=== PATIENT | female | born 1960 | race Caucasian/White ===

== ENCOUNTER → 2021-02-04 19:12 | Outpatient (BNVA) | payer OTHER, SELFPAY | PROVIDERS: Visit Provider Nurse Practitioner | DX: R50.9 Fever, unspecified (principal); B34.9 Viral infection, unspecified | CPT/HCPCS: 87400; 87635 ==

== ENCOUNTER → 2021-02-05 11:56 | Outpatient (BNVA) | payer OTHER, SELFPAY | PROVIDERS: Visit Provider Nurse Practitioner | DX: R50.9 Fever, unspecified (principal); B34.9 Viral infection, unspecified | CPT/HCPCS: 87801 ==

== ENCOUNTER 2023-02-24 07:46 | Day surgery (SDC) | payer OTHER, SELFPAY ==
[2023-02-24 08:03] VITALS: BP 137/90; PULSE 72; RESP 18; TEMP 36.1; O2SAT 95
--- NOTE | 2023-02-24 08:05 | ANES.PREANE2 ---
Pre-Anesthetic Assessment Height/Weight: Height 1.63 m Weight 122.47 kg Temp Pulse Resp BP Pulse Ox O2 Del Method 97.0 F L 72 18 137/90 95 Room Air 02/24/23 08:03 02/24/23 08:03 02/24/23 08:03 02/24/23 08:03 02/24/23 08:03 02/24/23 08:03 Preop Diagnosis: GERD/screening colonoscopy Operation Date: 02/24/23 09:00 Proposed Procedures p EGD(Not Applicable) - Perico Brannon DO s Colonoscopy(Not Applicable) - Perico Brannon DO Familial anesthetic complications: None Was Beta Socrates taken within 24 hours: Yes Was Clonidine taken within 24 hours: N/A Last intake: Intake Last Liquid Date 02/23/23 Last Liquid Time 22:00 Last Solid Date 02/22/23 Last Solid Time 20:00 Social No alcohol and No tobacco Exam alert, oriented x 3, clear to auscultation bilaterally and regular rate & rhythm Airway Submandibular: within normal limits Cervical ROM: within normal limits Mallampati: Class III Dentition: full History/ROS No significant history except as noted and No significant complaints Pulmonary Sleep Apnea (CPAP) CV/HEM Hypertension and Murmur (As a child) None reported Hepatic None reported GI Gastroesophageal Reflux Disease Metabolic Hyperlipidemia and Morbid Obesity Musc/skel Lower Back Pain and Osteoarthritis/DJD Neuropsych Neuropathy Anesthetic Plan ASA status: 3 Anesthesia: Anesthesia Evaluation, General and MAC Risk of > 500 ml blood loss (7ml/kg in children): No Medications/Allergies Home Medications Medication Instructions Recorded Confirmed Last Taken Type citalopram 10 mg tablet (Celexa) 10 mg PO DAILY 02/04/21 02/22/23 02/23/23 History metoprolol tartrate 50 mg tablet 50 mg PO BID 02/04/21 02/22/23 02/24/23 History amlodipine 5 mg tablet 10 mg PO DAILY 01/05/23 02/22/23 02/23/23 History pantoprazole 40 mg tablet,delayed 40 mg PO BID 6 weeks #84 tabs 01/05/23 02/22/23 02/23/23 Rx release (Protonix) Allergies Allergy/AdvReac Type Severity Reaction Status Date / Time No Known Allergies Allergy Verified 01/05/23 14:56 [facility] Anesthesia Social History Smoking and tobacco/nicotine status: never used tobacco/nicotine Alcohol intake: never Substance/Drug Use: never Data Anesthesia Cardiac Studies: No Data to Display
[2023-02-24] MEDS: sodium chloride 0.9% 1,000 ML 30 ML IV (08:09)
--- NOTE | 2023-02-24 09:35 | PM.HP ---
Providers/Chief Complaint Primary Care Provider: Peter Montero Chief Complaint: Z12.11, K21.9 History of Present Illness Stella Hodge is a 62 year old female Review of Systems General: Reports: 10 or more systems reviewed and unremarkable except in HPI and below Medications/Allergies Home Medications Medication Instructions Recorded Confirmed Last Taken Type citalopram 10 mg tablet (Celexa) 10 mg PO DAILY 02/04/21 02/22/23 02/23/23 History metoprolol tartrate 50 mg tablet 50 mg PO BID 02/04/21 02/22/23 02/24/23 History amlodipine 5 mg tablet 10 mg PO DAILY 01/05/23 02/22/23 02/23/23 History pantoprazole 40 mg tablet,delayed 40 mg PO BID 6 weeks #84 tabs 01/05/23 02/22/23 02/23/23 Rx release (Protonix) Allergies Allergy/AdvReac Type Severity Reaction Status Date / Time No Known Allergies Allergy Verified 01/05/23 14:56 PFSH Acute PFSH: Social History Smoking and tobacco/nicotine status: never used tobacco/nicotine Alcohol intake: never Substance/Drug Use: never Vitals/I&O/Wt Last Vital Signs Temp 97.0 F L 02/24/23 08:03 Pulse 72 02/24/23 08:03 Resp 18 02/24/23 08:03 BP 137/90 02/24/23 08:03 Pulse Ox 95 02/24/23 08:03 O2 Del Method Room Air 02/24/23 08:03 Weight last 48 hrs Weight 270 lb A&P Assessment and plan (1) GERD (gastroesophageal reflux disease): (2) Colon cancer screening: Plan EGD and colonoscopy Attestations Medical Necessity Statement*: Home Coding Level of Care Code Acute Code for Chg Fwd Diagnoses GERD (gastroesophageal reflux disease) K21.9 Colon cancer screening Z12.11
[2023-02-24 10:09] VITALS: BP 109/66; PULSE 60; RESP 20; TEMP 36.4; O2SAT 98
[2023-02-24 10:18] VITALS: BP 105/62; PULSE 62; RESP 18; O2SAT 97
== END 2023-02-24 10:41 | disposition home or self-care (01) ==
PROVIDERS: PCP Family Medicine; Visit Provider Surgery
PROC: 0DJ08ZZ Inspection of Upper Intestinal Tract, Via Natural or Artificial Opening Endoscopic (ICD-10-PCS; CPT 43235; principal; 2023-02-24 09:00)
PROC: 0DJD8ZZ Inspection of Lower Intestinal Tract, Via Natural or Artificial Opening Endoscopic (ICD-10-PCS; CPT 45378; 2023-02-24 09:00)
DX: Z12.11 Encounter for screening for malignant neoplasm of colon (principal); K63.5 Polyp of colon; K29.50 Unspecified chronic gastritis without bleeding; D12.8 Benign neoplasm of rectum; K62.89 Other specified diseases of anus and rectum; K21.9 Gastro-esophageal reflux disease without esophagitis; G47.30 Sleep apnea, unspecified; I10 Essential (primary) hypertension; E66.01 Morbid (severe) obesity due to excess calories; Z68.42 Body mass index [BMI] 45.0-49.9, adult
CPT/HCPCS: 43239; 45385; 88305; 88342; J2704; J7030